=== PATIENT | male | born 1990 | race Asian ===

== ENCOUNTER 2019-05-18 15:13 | Emergency (ER) | payer OTHER ==
[~2019-05-18] VITALS: Ht 165.1 cm; Wt 72.6 kg
[2019-05-18 15:18] VITALS: BP 144/90; Ht 165.1 cm; Wt 72.6 kg
== END 2019-05-18 16:45 | disposition home or self-care (01) ==
LOC: ED 15:13
DX: T25.322A Burn of third degree of left foot, initial encounter (principal); L03.116 Cellulitis of left lower limb; X12.XXXA Contact with other hot fluids, initial encounter; Y93.89 Activity, other specified; Y92.89 Other specified places as the place of occurrence of the external cause; Y99.8 Other external cause status

== ENCOUNTER 2019-05-20 15:51 | Emergency (ER) | payer OTHER ==
[~2019-05-20] VITALS: Ht 167.6 cm; Wt 72.6 kg
[2019-05-20 16:13] VITALS: Ht 167.6 cm; Wt 72.6 kg
[2019-05-20 19:47] VITALS: BP 117/75
== END 2019-05-20 19:17 | disposition home or self-care (01) ==
LOC: ED 15:51
DX: T25.222D Burn of second degree of left foot, subsequent encounter (principal); X11.8XXD Contact with other hot tap-water, subsequent encounter
CPT/HCPCS: 90715

== ENCOUNTER 2019-11-09 16:21 | Emergency (ER) | payer OTHER ==
[~2019-11-09] VITALS: Ht 167.6 cm; Wt 70.3 kg
[2019-11-09 16:24] VITALS: BP 144/88; Ht 167.6 cm; Wt 70.3 kg
== END 2019-11-09 18:06 | disposition home or self-care (01) ==
LOC: ED 16:21
DX: L02.211 Cutaneous abscess of abdominal wall (principal)

== ENCOUNTER 2019-11-11 13:37 | Emergency (ER) | payer OTHER ==
[~2019-11-11] VITALS: Ht 167.6 cm; Wt 70.3 kg
[2019-11-11 13:58] VITALS: Ht 167.6 cm; Wt 70.3 kg
[2019-11-11 14:51] VITALS: BP 121/71
== END 2019-11-11 14:51 | disposition home or self-care (01) ==
LOC: ED 13:37
DX: Z48.01 Encounter for change or removal of surgical wound dressing (principal)